=== PATIENT | male | born 1990 | race American Indian/Alaskan Native ===

== ENCOUNTER 2016-09-14 03:24 | Emergency (ER) | payer OTHER ==
--- NOTE | 2016-09-14 03:34 | ED ---
Alcohol HPI - General Chief Complaint: Alcohol Stated Complaint: ETOH Time Seen by Provider: 09/14/16 03:27 Source: RN notes reviewed - History of Present Illness Initial Comments: 26-year-old male presents to the ER with chief complaint of alcohol intoxication. Patient states he was drinking tonight with plans. Patient was found sleeping on the by police. The patient has no complaints. Patient did vomit upon himself. Patient denies any recent fever, chills, shortness of breath , chest pain, back pain, abdominal pain, nausea vomiting, numbness or tingling, dysuria or hematuria, constipation or diarrhea, headaches or visual changes, or any other current symptoms. Review of Systems ROS Statement: Those systems with pertinent positive or pertinent negative responses have been documented in the HPI. ROS Other: All systems not noted in ROS Statement are negative. General Exam General appearance: alert Head exam: Present: atraumatic, normocephalic, normal inspection Neck exam: Present: normal inspection. Absent: tenderness, meningismus, lymphadenopathy Respiratory exam: Present: normal lung sounds bilaterally. Absent: respiratory distress, wheezes, rales, rhonchi, stridor Cardiovascular Exam: Present: regular rate, normal rhythm, normal heart sounds. Absent: systolic murmur, diastolic murmur, rubs, gallop, clicks Neurological exam: Present: alert, oriented X3 Psychiatric exam: Present: normal affect, normal mood Skin exam: Present: warm, dry, intact, normal color. Absent: rash Course - Reevaluation(s) Reevaluation #1: 09/14/16 03:33 This case will be signed out to Dr. Hampton. Medical Decision Making - Medical Decision Making 26-year-old male presents emergency Department chief complaint alcohol intoxication. Disposition Clinical Impression: Alcoholic intoxication Disposition: HOME SELF-CARE Condition: Stable Instructions: Alcohol Intoxication (ED) Additional Instructions: Please use medication as discussed. Please follow up with family doctor if symptoms have not improved over the next two days. Please return to the emergency room if your symptoms increase or worsen or for any other concerns. Referrals: Aisha Jones MD [STAFF PHYSICIAN] - 1-2 days
[2016-09-14 06:59] VITALS: BP 133/84; PULSE 94; RESP 20; TEMP 97.1
== END 2016-09-14 07:02 | disposition home or self-care (01) ==
LOC: EC 03:24
DX: F10.129 Alcohol abuse with intoxication, unspecified (principal)
CPT/HCPCS: 99283